=== PATIENT | female | born 1985 | race Caucasian/White ===

== ENCOUNTER 2018-08-26 14:18 | Emergency (ER) | payer MEDICAID ==
[~2018-08-26] VITALS: Ht 160 cm; Wt 63.5 kg
[2018-08-26 14:20] VITALS: Ht 160 cm; Wt 63.5 kg
[2018-08-26] MEDS ORDERED: ONDANSETRON 4 MG INJ IV STA (17:22)
[2018-08-26] MEDS ORDERED: ACETAMINOPHEN 325 MG TAB PO STA (17:22)
[2018-08-26] MEDS ORDERED: SOD CHLORIDE 0.9% 1,000 ML IV STA (17:22)
[2018-08-26] MEDS ORDERED: CEPH-443 PO (19:16)
[2018-08-26] MEDS ORDERED: ONDA4TAB14 PO (19:50)
[2018-08-26] MEDS ORDERED: DOXY1TAB3 PO (19:50)
[2018-08-26 19:55] VITALS: BP 94/55; PULSE 70; RESP 16
--- NOTE | 2018-08-26 22:02 | ERD ---
ER Documentation Chief Complaint Chief Complaint vomiting and pelvic pain x 3 weeks, 8 weeks HPI 33-year-old female with no significant past medical history, currently 8 weeks , G3, , last menstrual cycle 06/26/2018 presents complaining of pelvic pain intermittently for the past 3 days. She had 4 episodes of vomiting today as well. Current pain is rated 4/10 in severity and intermittent. She had an ultrasound during this approximately 15 days ago which showed no IUP. She denies any vaginal bleeding, fevers, chills, or other symptoms at this time. ROS All systems reviewed and are negative except as per history of present illness. Medications Home Meds Active Scripts Doxylamine/Pyridoxine Hcl (DICLEGIS DR 10-10 MG TABLET) 1 Each Tablet.dr, 1 TAB PO DAILY, #10 TAB Prov:ELINOR ENG PA-C 08/26/18 Ondansetron (Ondansetron Odt) 4 Mg Tab.rapdis, 4 MG PO Q6H PRN for NAUSEA AND/OR VOMITING, #10 TAB Prov:ELINOR ENG PA-C 08/26/18 Cephalexin* (Keflex*) 500 Mg Capsule, 500 MG PO TID for 7 Days, CAP Prov:ELINOR ENG PA-C 08/26/18 Allergies Allergies: Coded Allergies: No Known Allergy (Unverified , 08/26/18) PMhx/Soc Medical and Surgical Hx: pt denies Medical Hx, pt denies Surgical Hx Hx Alcohol Use: No Hx Substance Use: No Hx Tobacco Use: No Smoking Status: Never smoker FmHx Family History: No diabetes Physical Exam Vitals Vital Signs Date Temp Pulse Resp B/P (MAP) Pulse Ox O2 O2 Flow FiO2 Time Delivery Rate 08/26/18 70 16 94/55 (68) 100 Room Air 19:55 08/26/18 99.2 90 18 120/74 98 14:20 (89) Physical Exam Const: No acute distress Head: Atraumatic Eyes: Normal Conjunctiva ENT: Normal External Ears, Nose and Mouth. Neck: Full range of motion. No meningismus. Resp: Clear to auscultation bilaterally Cardio: Regular rate and rhythm, no murmurs Abd: Soft, non tender, non distended. Normal bowel sounds Skin: No petechiae or rashes Back: No midline or flank tenderness Ext: No cyanosis, or edema Neur: Awake and alert Psych: Normal Mood and Affect Result Diagram: 08/26/18 1732 08/26/18 1732 Results 24 hrs Laboratory Tests Test 08/26/18 17:32 White Blood Count 9.1 10^3/ul Red Blood Count 4.62 10^6/ul Hemoglobin 13.1 g/dl Hematocrit 39.4 % Mean Corpuscular Volume 85.3 fl Mean Corpuscular Hemoglobin 28.4 pg Mean Corpuscular Hemoglobin Concent 33.2 g/dl Red Cell Distribution Width 12.8 % Platelet Count 244 10^3/UL Mean Platelet Volume 10.8 fl Immature Granulocytes % 0.200 % Neutrophils % 63.9 % Lymphocytes % 30.7 % Monocytes % 4.8 % Eosinophils % 0.3 % Basophils % 0.1 % Nucleated Red Blood Cells % 0.0 /100WBC Immature Granulocytes # 0.020 10^3/ul Neutrophils # 5.8 10^3/ul Lymphocytes # 2.8 10^3/ul Monocytes # 0.4 10^3/ul Eosinophils # 0.0 10^3/ul Basophils # 0.0 10^3/ul Nucleated Red Blood Cells # 0.0 10^3/ul Urine Color DEMETRIA Urine Clarity CLOUDY Urine pH 6.0 Urine Specific [place] 1.033 Urine Ketones 2+ mg/dL Urine Nitrite NEGATIVE mg/dL Urine Bilirubin NEGATIVE mg/dL Urine Urobilinogen 2+ mg/dL Urine Leukocyte Esterase 1+ Anam/ul Urine Microscopic RBC 5 /HPF Urine Microscopic WBC 16 /HPF Urine Squamous Epithelial Cells MANY /HPF Urine Bacteria FEW /HPF Urine Mucus FEW /HPF Urine Hemoglobin NEGATIVE mg/dL Urine Glucose NEGATIVE mg/dL Urine Total Protein 1+ mg/dl Sodium Level 141 mmol/L Potassium Level 3.9 mmol/L Chloride Level 105 mmol/L Carbon Dioxide Level 22 mmol/L Anion Gap 14 Blood Urea Nitrogen 9 mg/dl Creatinine 0.49 mg/dl Est Glomerular Filtrat Rate mL/min > 60 mL/min Glucose Level 87 mg/dl Calcium Level 9.5 mg/dl Total Bilirubin 0.6 mg/dl Direct Bilirubin 0.00 mg/dl Indirect Bilirubin 0.6 mg/dl Aspartate Amino Transf (AST/SGOT) 37 IU/L Alanine Aminotransferase (ALT/SGPT) 58 IU/L Alkaline Phosphatase 68 IU/L Total Protein 8.7 g/dl Albumin 4.7 g/dl Globulin 4.00 g/dl Albumin/Globulin Ratio 1.17 Beta HCG, Quantitative 327586.0 mIU/ml Current Medications Medications Dose Sig/Alicia Start Time Status Last (Trade) Ordered Route PRN Stop Time Admin Dose Reason Admin Sodium 1,000 ml @ Q1H STAT 08/26/18 DC 08/26/18 Chloride 1,000 mls/hr IV 17:22 17:43 08/26/18 18:21 650 mg ONCE STAT 08/26/18 DC 08/26/18 Acetaminophen PO 17: 17:42 (Tylenol 08/26/18 17:24 Tab) Ondansetron 4 mg ONCE STAT 08/26/18 DC 08/26/18 HCl (Zofran IV : 17:42 Inj) 08/26/18 17:24 [place] [address] Radiology Main Line: [phone] DIAGNOSTIC IMAGING REPORT Patient: MARY MACKAY : 1985 Age: 33 Sex: F MR #: [id number] DOS: 08/26/18 1722 Ordering MD: ELINOR ENG PA-C Location: [facility] Room/Bed: PROCEDURE: US OB. CLINICAL INDICATION: Vaginal bleeding. Clinical estimated gestational age is 8 weeks 5 days with estimated date of 04/02/2019 TECHNIQUE: Transabdominal views of the pelvis are available for review. COMPARISON: No prior studies are available for comparison. FINDINGS: [place]-rump length: 0.87 cm heart rate: 146 beats per minute Ultrasound estimated gestational age: 6 weeks 6 days Estimated date of delivery: 04/15/2019 No ovarian or adnexal mass lesion is seen. There is a 2.4 cm right corpus luteum. Color flow and spectral analysis demonstrates arterial and venous flow in both ovaries. There is no free fluid. IMPRESSION: 1. Single live intrauterine with an estimated gestational age of 6 weeks 6 days based on ultrasound measurement. RPTAT: HJES .Claudio Angel MD, MD Date Time Electronically viewed and signed by .Claudio Angel MD, MD on 08/26/2018 18:23 .S/ CC: ELINOR ENG HARRIS [phone] Procedures/MDM 33-year-old female presents to the emergency department with signs and symptoms most consistent with pelvic pain complicating and urinary tract infection. Ultrasound showed a live IUP with heart tones present. Beta hCG was consistent with term of . Patient's blood type was O+. She did not require RhoGam at this time. No evidence of acute surgical abdomen, ectopic , tubo-ovarian abscess, ovarian torsion, sepsis, meningitis, serous bacterial infection, or other emergencies. Patient is stable for discharge and was advised to return to the department immediately for any new or worsening or concerning symptoms. She was advised to have close RN S[employer]AULT follow- up. She understands and agrees with plan. Departure Diagnosis: Primary Impression: UTI (urinary tract infection) Additional Impression: Pelvic pain complicating Condition: Fair Patient Instructions: Understanding Urinary Tract Infections (UTIs) Referrals: COMM[facility] YOU HAVE RECEIVED A MEDICAL SCREENING EXAM AND THE RESULTS INDICATE THAT YOU DO NOT HAVE A CONDITION THAT REQUIRES URGENT TREATMENT IN THE EMERGENCY DEPARTMENT. FURTHER EVALUATION AND TREATMENT OF YOUR CONDITION CAN WAIT UNTIL YOU ARE SEEN IN YOUR DOCTORS OFFICE WITHIN THE NEXT 1-2 DAYS. IT IS YOUR RESPONSIBILITY TO MAKE AN APPOINTMENT FOR FOLOW-UP CARE. IF YOU HAVE A PRIMARY DOCTOR --you should call your primary doctor and schedule an appointment IF YOU DO NOT HAVE A PRIMARY DOCTOR YOU CAN CALL OUR PHYSICIAN REFERRAL HOTLINE AT IF YOU CAN NOT AFFORD TO SEE A PHYSICIAN YOU CAN CHOSE FROM THE FOLLOWING [facility] [address] [facility] [address] [facility] [address] [facility] [address] [facility] [address] [place] [address]. [facility]. [address] Additional Instructions: Llame al doctor MAANA y arash roni ROMMEL PARA DENTRO DE 1-2 ALBARADO.Dgale a la secretaria que nosotros le instruimos hacer esta rommel.Avise o llame si amador condicin se empeora antes de la rommel. Regresa aqui si peor o no mejor. ELINOR ENG PA-C Aug 26, 2018 22:02
== END 2018-08-26 19:55 | disposition home or self-care (01) ==
LOC: FTE 14:18
DX: O23.41 Unspecified infection of urinary tract in pregnancy, first trimester (principal); R10.2 Pelvic and perineal pain; Z3A.01 Less than 8 weeks gestation of pregnancy
CPT/HCPCS: 76801; 80053; 81001; 84702; 85025; 86900; 86901; J2405; J7030; Z7610; 36415; 96374